=== PATIENT | female | born 1970 | race Caucasian/White ===

== ENCOUNTER 2017-12-06 01:55 | Inpatient (IN) | END 2017-12-18 18:20 | disposition home health service (06) | DRG 64 ==

== ENCOUNTER 2018-03-28 21:44 | Inpatient (IN) | END 2018-03-30 18:25 | disposition home or self-care (01) | DRG 93 ==

== ENCOUNTER 2018-11-05 22:22 | Emergency (ER) | payer MEDICAID ==
[~2018-11-05] VITALS: Ht 152.4 cm; Wt 51.0 kg
[~2018-11-05 22:22] MED LIST: ATOR-2 PO; LEVE-5 PO
[2018-11-05 22:33] VITALS: Ht 152.4 cm; Wt 51.0 kg
[2018-11-05] MEDS ORDERED: SOD CHLORIDE 0.9% 500 ML IV STA (22:43)
[2018-11-05] MEDS ORDERED: LORAZEPAM 2 MG INJ IV ONE (23:00)
[2018-11-06] MEDS ORDERED: FER325 PO (00:56)
[2018-11-06 01:05] VITALS: BP 115/78; PULSE 86; RESP 16
--- NOTE | 2018-11-06 01:06 | ERD ---
ER Documentation Chief Complaint Chief Complaint numbness and tigling to R arm x 2 hours, stroke last year HPI This 47-year female complains of numbness and tingling to her right arm for 2 hours after she had an emotional moment consider a very good friend yesterday. She said she started feeling very anxious and then started getting his numbness. Denies fevers chills nausea vomiting denies any dysarthria. Denies any focal neurological complaints. ROS All systems reviewed and are negative except as per history of present illness. Medications Home Meds Active Scripts Ferrous Sulfate* (Ferrous Sulfate*) 325 Mg Tabec, 325 MG PO TID, #90 TAB Prov:CLAUDETTESHEYLA S. 11/06/18 Levetiracetam* (Keppra*) 500 Mg Tablet, 500 MG PO BID, #60 TAB 4 Refills Prov:RAJUSTINO MARTINEZP S. 12/18/17 Atorvastatin* (Atorvastatin*) 80 Mg Tablet, 80 MG PO QHS, #30 TAB 2 Refills Prov:JUSTINO SHINP S. 12/18/17 Allergies Allergies: Coded Allergies: No Known Drug Allergies (Verified Allergy, Unknown, 03/28/18) PMhx/Soc History of Surgery: No Anesthesia Reaction: No Hx Neurological Disorder: No (HX OF SEIZURE?,CVA) Hx Respiratory Disorders: No Hx Cardiac Disorders: No Hx Psychiatric Problems: No Hx Miscellaneous Medical Probl: Yes (H. OF CVA, SEIZURE , MILD RUE WEAKNESS .) Hx Alcohol Use: No Hx Substance Use: No Hx Tobacco Use: No Smoking Status: Never smoker Physical Exam Vitals Vital Signs Date Temp Pulse Resp B/P (MAP) Pulse Ox O2 O2 Flow FiO2 Time Delivery Rate 11/05/18 89 16 110/59 100 Room Air 23:44 (76) 11/05/18 98.3 101 20 126/85 100 22:33 (99) Physical Exam Const: No acute distress Head: Atraumatic Eyes: Normal Conjunctiva ENT: Normal External Ears, Nose and Mouth. Neck: Full range of motion. No meningismus. Resp: Clear to auscultation bilaterally Cardio: Regular rate and rhythm, no murmurs Abd: Soft, non tender, non distended. Normal bowel sounds Skin: No petechiae or rashes Back: No midline or flank tenderness Ext: No cyanosis, or edema Neur: Awake and alert Psych: Normal Mood and Affect Result Diagram: 11/05/18 2342 11/05/18 2342 Results 24 hrs Laboratory Tests Test 11/05/18 23:42 White Blood Count 4.8 10^3/ul Red Blood Count 2.77 10^6/ul Hemoglobin 7.1 g/dl Hematocrit 25.8 % Mean Corpuscular Volume 93.1 fl Mean Corpuscular Hemoglobin 25.6 pg Mean Corpuscular Hemoglobin Concent 27.5 g/dl Red Cell Distribution Width 19.2 % Platelet Count 384 10^3/UL Mean Platelet Volume 9.9 fl Immature Granulocytes % 0.600 % Neutrophils % 72.7 % Lymphocytes % 17.5 % Monocytes % 7.3 % Eosinophils % 1.3 % Basophils % 0.6 % Nucleated Red Blood Cells % 0.4 /100WBC Immature Granulocytes # 0.030 10^3/ul Neutrophils # 3.5 10^3/ul Lymphocytes # 0.8 10^3/ul Monocytes # 0.4 10^3/ul Eosinophils # 0.1 10^3/ul Basophils # 0.0 10^3/ul Nucleated Red Blood Cells # 0.0 10^3/ul Prothrombin Time 13.4 Sec Prothrombin Time Ratio 1.0 INR International Normalized Ratio 1.01 Activated Partial Thromboplast Time 27.5 Sec Sodium Level 141 mmol/L Potassium Level 3.9 mmol/L Chloride Level 110 mmol/L Carbon Dioxide Level 24 mmol/L Anion Gap 7 Blood Urea Nitrogen 6 mg/dl Creatinine 0.53 mg/dl Est Glomerular Filtrat Rate mL/min > 60 mL/min Glucose Level 92 mg/dl Calcium Level 9.1 mg/dl Troponin I < 0.012 ng/ml Current Medications Medications Dose Sig/Yeimy Start Time Status Last (Trade) Ordered Route PRN Stop Time Admin Dose Reason Admin Sodium 500 ml @ Q1H STAT 11/05/18 DC 11/05/18 Chloride 500 mls/hr IV 22:43 11/05/18 23:51 23:42 Lorazepam 1 mg ONCE ONCE 11/05/18 DC (Ativan) IV 23:00 11/05/18 23:01 Procedures/MDM EKG: Rate/Rhythm: [Normal Sinus Rhythm] QRS, ST, T-waves: [No changes consistent w/ acute ischemia] Impression: [No evidence of ischemia or arrhythmia] Chest X-ray 1V Interpreted by me: Soft Tissue: No acute abnormalities Bones: No acute abnormalities Mediastinum/Cardiac Silhouette/Lungs: [No acute abnormalities] Medical decision making: This very pleasant 47-year-old female comes in with right arm tingling. She was not numb on exam. It seems like this is more anxiety related. She also complained of some mild perioral numbness upon further questioning. She also felt very anxious. She now feels much better. At this point clinically stable. Advise follow-up with primary care physician. Return for worsening symptoms. Patient showed evidence of iron deficiency anemia as well. At this point she has no evidence of symptomology regarding this. She is been started on iron 3 times daily. She is to follow-up with PCP regarding this as well Departure Diagnosis: Primary Impression: Numbness Condition: Stable Patient Instructions: Anemia, Anxiety Reaction SHEYLA WILKINS Nov 06, 2018 01:06
== END 2018-11-06 01:05 | disposition home or self-care (01) ==
LOC: E/R 22:22
DX: R20.0 Anesthesia of skin (principal); R51 Headache; R40.2142 Coma scale, eyes open, spontaneous, at arrival to emergency department; R40.2252 Coma scale, best verbal response, oriented, at arrival to emergency department; R40.2362 Coma scale, best motor response, obeys commands, at arrival to emergency department; Z86.73 Personal history of transient ischemic attack (TIA), and cerebral infarction without residual deficits
CPT/HCPCS: 36415; 70450; 71045; 80048; 84484; 85025; 85610; 85730; 93005; J7040; Z7502